=== PATIENT | male | born 1975 | race African-American/Black ===

== ENCOUNTER 2020-05-20 15:09 | Observation (INO) ==
[2020-05-20] MEDS ORDERED: SODIUM CHLORIDE 0.9% 1,000 ML IV STA (15:39)
[2020-05-20] MEDS ORDERED: THIAMINE INJ 100 MG, FOLIC ACID INJ 1 MG, MAGNESIUM SULF INJ 2 GM, MULTIVITAMIN INJ 10 ... IV STA (15:39)
[2020-05-20] MEDS ORDERED: THIAMINE 200 MG/2 ML VIAL IV STA (15:42)
[2020-05-20 16:00] LABS: Basophils % 1.1 % (0.0-0.8); Hematocrit 37.4 VOL% (42.0-52.0); Hemoglobin 12.8 GM/DL (14.0-18.0); Immature Granulocytes % 0.6 %; Immature Granulocytes Absolute 0.02 #; Lymphocytes # 0.9 10*3/uL (1.4-4.0); Lymphocytes % 26.1 % (21.2-54.2); Mean Corpuscular HGB Conc 34.2 GM/DL (32-36); Mean Corpuscular Volume 94.2 FL (87-102); Mean Platelet Volume 10.1 FL (9.6-12.0); Monocytes % 7.1 % (1.7-12.7); Neutrophils % 65.1 % (38.7-73.9); Platelet Count 134 T/CUMM (130-400); Red Blood Count 3.97 MC/CUMM (3.8-5.5); Red Cell Distribution Width 12.7 % (9.3-17.3); White Blood Count 3.5 T/CUMM (4-12)
[2020-05-20 16:17] LABS: Albumin 4.1 G/DL (3.4-5.0); Bilirubin,Total 0.8 MG/DL (0.2-1.0); Calcium 8.4 MG/DL (8.5-10.1); Osmolality,Calculated 276.4 MOS/KG (273-304); Total Protein 7.6 G/DL (6.4-8.3)
[2020-05-20 17:08] LABS: Barbiturates Screen,Urine Negative (Negative); Benzodiazepines Screen,Urine Negative (Negative); Cannabinoid Screen,Urine Negative (Negative); Opiate Screen,Urine Negative (Negative); Phencyclidine Screen,Urine Negative (Negative)
[2020-05-20] MEDS ORDERED: DEXTROSE 50% 25 GM/50 ML VIAL IV PRN (19:21)
[2020-05-20] MEDS ORDERED: GLUCAGON 1 MG VIAL IM PRN (19:21)
[2020-05-20] MEDS ORDERED: THIAMINE INJ 100 MG, FOLIC ACID INJ 1 MG, MULTIVITAMIN INJ 10 ML in SODIUM CHLORIDE 0.9... IV SCH (21:00)
[2020-05-20] MEDS: SODIUM CHLORIDE 0.9% 1,000 ML IV SCH (21:15)
[2020-05-20] MEDS ORDERED: INFLUENZA VIRUS VACCINE 0.5 ML SYRINGE IM ONE (22:50)
[2020-05-20] MEDS ORDERED: PROMETHAZINE INJ 25 MG in SODIUM CHLORIDE 0.9% 50 ML IV PRN (23:04)
[2020-05-20] MEDS ORDERED: ONDANSETRON 4 MG/2 ML VIAL IV PRN (23:04)
[2020-05-21 05:07] LABS: Basophils % 0.7 % (0.0-0.8); Hematocrit 35.6 VOL% (42.0-52.0); Hemoglobin 12.2 GM/DL (14.0-18.0); Immature Granulocytes % 0.4 %; Immature Granulocytes Absolute 0.02 #; Lymphocytes # 0.9 10*3/uL (1.4-4.0); Mean Corpuscular HGB Conc 34.3 GM/DL (32-36); Mean Corpuscular Volume 96.5 FL (87-102); Mean Platelet Volume 10.1 FL (9.6-12.0); Monocytes % 6.3 % (1.7-12.7); Neutrophils % 73.6 % (38.7-73.9); Platelet Count 118 T/CUMM (130-400); Red Blood Count 3.69 MC/CUMM (3.8-5.5); Red Cell Distribution Width 12.8 % (9.3-17.3); White Blood Count 4.6 T/CUMM (4-12)
[2020-05-21 05:30] LABS: Albumin 3.4 G/DL (3.4-5.0); Bilirubin,Total 1.1 MG/DL (0.2-1.0); Calcium 7.6 MG/DL (8.5-10.1); Hypochromasia 1+; Microcytosis 1+; Osmolality,Calculated 276.4 MOS/KG (273-304); Platelet Estimate Decreased; Total Protein 6.6 G/DL (6.4-8.3)
[2020-05-21 05:35] LABS: Risk Ratio 1.78; Thyroid Stimulating Hormone 0.122 uIU/ml (0.358-3.74); VLDL CHOLESTEROL 14.6 MG/DL
[2020-05-21 07:11] VITALS: BP 134/86
[2020-05-21] MEDS: SODIUM CHLORIDE 0.9% 1,000 ML IV SCH (07:59)
[2020-05-21] MEDS ORDERED: MULTIVITAMIN (CENTRUM) TABLET PO SCH (09:00)
[2020-05-21] MEDS ORDERED: THIAMINE 100 MG TABLET PO SCH (09:00)
[2020-05-21] MEDS ORDERED: FOLIC ACID 1 MG TABLET PO SCH (09:00)
== END 2020-05-21 10:28 | disposition home or self-care (01) ==
LOC: EDBD → EDUNIT# → N.EDINP 15:09 → N.ED 15:09 → N.5E 21:35
PROVIDERS: ADMIT Internal Medicine; ATTEND Internal Medicine